=== PATIENT | female | born 1995 | race African-American/Black ===

== ENCOUNTER 2021-09-07 17:17 | Emergency (ER) | payer MEDICAID, OTHER ==
[~2021-09-07] VITALS: Ht 175.3 cm; Wt 105.0 kg
[2021-09-07 17:27] VITALS: BP 144/103
[2021-09-07] MEDS ORDERED: CLINDAMYCIN 600 MG in DEXTROSE 5% WATER 50 ML IV ONE (20:15)
[2021-09-07] MEDS ORDERED: CLINDAMYCIN 600 MG PREMIX 50 ML IV NR (21:00)
[2021-09-07 21:02] LABS: BASOPHILS % 0.8 % (0.0-2.0); EOSINOPHILS % 0.7 % (0.0-5.0); HEMATOCRIT. 41.7 % (36.0-48.0); HEMOGLOBIN. 13.5 g/dL (12.0-16.0); LYMPHOCYTES % 29.8 % (20.0-50.0); MEAN CORPUSCULAR HEMOGLOBIN 29.2 pg (28.0-32.0); MEAN CORPUSCULAR VOLUME 90.4 fL (81.0-99.0); MEAN PLATELET VOLUME 7.8 fl (7.4-10.4); MONOCYTES % 7.1 % (2.0-8.0); NEUTROPHILS % 61.6 % (40.0-76.0); PLATELET 372 x1000/uL (130-400); RED BLOOD CELL COUNT 4.61 mill/uL (4.2-5.4); RED CELL DISTRIBUTION WIDTH 13.3 % (11.6-14.6)
[2021-09-07 21:03] LABS: CHLORIDE 103 mEq/L (98-107)
[2021-09-07] MEDS ORDERED: IBUP-2028 MT (22:51)
[2021-09-07] MEDS ORDERED: CEPH500C2 MT (22:51)
== END 2021-09-07 23:11 | disposition home or self-care (01) ==
LOC: ER 17:17
DX: L03.115 Cellulitis of right lower limb (principal); L81.8 Other specified disorders of pigmentation
CPT/HCPCS: 36415; 80053; 81025; 83605; 85025; 87040; 93971; 96365; 99284; J3490; J7060